=== PATIENT | male | born 1945 | race Hispanic/Latino ===

== ENCOUNTER 2017-07-31 08:13 | Day surgery (SDC) | payer MEDICARE ==
[~2017-07-31 08:13] MED LIST: ALBU0.63 IH; BRIM5DRO4 OP; DIPH25 PO; FURO40TA5 PO; GLIM2TAB3 PO; HYDR-3421 PO; ISOS20TA7 PO; LACT10SO9 PO; NITR0.4T SL; PANT40TA25 PO; PROP40TA7 PO; SODIUM CHLORIDE 0.9% 1000ML 1,000 ML IV ONE; SPIR100T PO
[2017-07-31] MEDS ORDERED: IOPAMIDOL-370 75 ML VIAL IV ONE (11:29)
== END 2017-07-31 12:13 | disposition home or self-care (01) ==
LOC: DAH 08:13
PROVIDERS: ATTEND Internal Medicine Gastroenterology
DX: K74.60 Unspecified cirrhosis of liver (principal); N28.89 Other specified disorders of kidney and ureter; I86.4 Gastric varices; R16.1 Splenomegaly, not elsewhere classified; Z83.3 Family history of diabetes mellitus; E11.9 Type 2 diabetes mellitus without complications; I10 Essential (primary) hypertension; D64.9 Anemia, unspecified; D69.6 Thrombocytopenia, unspecified
CPT/HCPCS: 74178; 82948; 96360; 96361; A4606 ×2; J7030; Q9967